=== PATIENT | female | born 1930 | race Caucasian/White ===

== ENCOUNTER 2018-06-09 01:10 | Inpatient (IN) | payer MEDICARE, OTHER | END 2018-06-11 22:35 | LOC: TELE-EAST 01:10 | DX: I48.91 Unspecified atrial fibrillation (principal); G93.41 Metabolic encephalopathy; E44.1 Mild protein-calorie malnutrition; I10 Essential (primary) hypertension; G30.9 Alzheimer's disease, unspecified; F01.50 Vascular dementia, unspecified severity, without behavioral disturbance, psychotic disturbance, mood disturbance, and anxiety; Z79.01 Long term (current) use of anticoagulants; H53.461 Homonymous bilateral field defects, right side ==